=== PATIENT | male | born 1960 | race African-American/Black ===

== ENCOUNTER 2017-02-13 16:59 | Observation (INO) | payer OTHER ==
[~2017-02-13 16:59] MED LIST: ISOVUE-370 76%-LOCM 1 ML ONE
[2017-02-13 17:14] LABS: Hematocrit 37.9 % (42.0-52.0); Mean Platelet Volume 7.6 fL (7.4-10.4); Red Blood Cell (RBC) Count 4.41 mill/uL (4.70-6.10); White Blood Cell (WBC) Count 8.6 thou/uL (4.8-10.8)
[2017-02-13 17:26] LABS: PTT 28.3 SEC (22.9-36.1); Prothrombin Time 14.1 SEC (12.0-14.7)
[2017-02-13 17:28] LABS: ALT (SGPT) 14 U/L (8-55); AST (SGOT) 18 U/L (5-34); Alkaline Phosphatase 89 U/L (40-150); Anion Gap 17 mmol/L (10-20); BUN (Urea Nitrogen) 17 mg/dL (8.4-25.7); Bilirubin, Total 0.5 mg/dL (0.2-1.2); Calc. Creatinine Clearance 0 mL/min (70-130); Calcium 9.3 mg/dL (7.8-10.44); Carbon Dioxide 22 mmol/L (22-29); Chloride 102 mmol/L (98-107); Estimated GFR-MDRD 64; Globulin 3.4 g/dL (2.4-3.5); Protein, Total 7.6 g/dL (6.0-8.3)
[2017-02-13 17:33] LABS: Troponin I Less than 0.010 ng/mL (< 0.028)
[2017-02-13 17:34] LABS: Neutrophil 49 % (42-75)
[2017-02-13 17:38] LABS: CK (CPK) 162 U/L (30-200); Lipase 41 U/L (8-78)
[2017-02-13 17:45] LABS: Bilirubin Negative (Negative); Blood, Urine Negative (Negative); Glucose, Urine (Dipstick) Negative (Negative); Ketone, Urine Negative (Negative); Nitrite Negative (Negative); Protein, Urine (Dipstick) Negative (Neg-Trace); Urobilinogen 0.2 mg/dL (0.2-1.0)
--- NOTE | 2017-02-13 17:52 | RAD ---
RADIOGRAPH CHEST 1 VIEW: Supine HISTORY: 56-year-old male with acute chest pain. FINDINGS: There is no air space density or pulmonary edema. The lateral costophrenic angles are sharp. Supine positioning makes this study insensitive for pneumothorax detection. IMPRESSION: No acute pulmonary findings. og [] POS: [facility]
[2017-02-13 17:56] LABS: Amphetamine Not Detected (NotDetected); Methadone Not Detected (NotDetected); Methamphetamine Not Detected (NotDetected)
[2017-02-13 18:07] LABS: Hematocrit 41.3 % (42.0-52.0); Mean Platelet Volume 7.2 fL (7.4-10.4); Red Blood Cell (RBC) Count 4.74 mill/uL (4.70-6.10); White Blood Cell (WBC) Count 8.8 thou/uL (4.8-10.8)
[2017-02-13 18:27] LABS: Neutrophil 35 % (42-75)
--- NOTE | 2017-02-13 20:24 | CT ---
CTA THORAX WITH CONTRAST: 02/13/2017 (Computed Tomographic Angiography, chest (noncoronary) with contrast material, and image post proces sing) (PE protocol) HISTORY: A 56-year-old male status post syncope and chest pain. TECHNIQUE: IV injection of iodinated contrast: Isovue. Scan acquisition timing attempted to coincide with iodinated contrast bolus reaching maximal density in pulmonary arteries. 3D MIP reconstructions. FINDINGS: The esophagus is mildly distended with fluid and air. No evidence of pulmonary thromboembolism. No thoracic aortic aneurysm or dissection. Heavy calcification of the LAD. No pericardial effusion, pleural effusion, consolidation, pneumothorax, or pulmonary edema. No mediastinal or hilar lymphade nopathy. The stomach is fluid-filled and distended. IMPRESSION: 1. No evidence of pulmonary thromboembolism. No acute findings. 2. Distended stomach and possible ongoing gastroesophageal reflux. 3. Coronary atherosclerosis. og[] POS: [facility]
[2017-02-13] MEDS ORDERED: Ondansetron ODT 4 MG TAB SL PRN (21:33)
[2017-02-13] MEDS ORDERED: Ondansetron HCl/PF 4 MG/2 ML Vial IVP PRN (21:33)
[2017-02-13] MEDS ORDERED: Sodium Chloride 0.45% 1,000 ML IV SCH (21:45)
[2017-02-13 21:46] VITALS: BMI 23.0
[2017-02-13 21:56] LABS: Troponin I Less than 0.010 ng/mL (< 0.028)
[2017-02-14] MEDS ORDERED: Ondansetron HCl/PF 4 MG/2 ML Vial IVP PRN (00:24)
[2017-02-14] MEDS ORDERED: Acetaminophen 325 MG TAB PO PRN (00:24)
[2017-02-14] MEDS ORDERED: Potassium Chloride 20 MEQ TAB PO SCH (00:30)
[2017-02-14] MEDS: NS 0.9% w/ 40 MEQ KCL 1,000 ML IV SCH ×3 (00:46→20:26)
[2017-02-14 00:51] LABS: Troponin I 0.023 ng/mL (< 0.028)
--- NOTE | 2017-02-14 01:17 | HP ---
PRIMARY CARE PHYSICIAN: Taj Fam M.D. CHIEF COMPLAINT: Passing out. HISTORY OF PRESENT ILLNESS: Mr. Iverson is a pleasant 56-year-old gentleman, who was seen at [facility] on 02/14/2017. He reports that he had a syncopal episode 8 months ago. Yesterday, he mowed the lawn, sat down and drank a beer the early afternoon. He reports that he was sitting in a chair and passed out. The ep isode was witnessed. He reportedly had passed out for 10 minutes, with his eyes closed. No tonic-c lonic movements. No urinary or fecal incontinence. He does not recall what happened during the epi sode. There was no confusion following the episode. His family reported that the patient was diaph oretic. The patient specifically denies having any chest pain. He denies any nausea, vomiting, fevers, or c hills. REVIEW OF SYSTEMS: The following complete review of systems was negative, unless otherwise mentione d in the HPI or below: Constitutional: Weight loss or gain, sense of well-being, ability to conduc t usual activities, exercise tolerance. Skin/Breast: Rash, itching, changes in hair growth or loss , nail changes, breast lumps, tenderness, swelling, nipple discharge. Eyes: Vision, double vision, tearing, blind spots, pain. ENT/Mouth: Headaches (location, time of onset, duration, precipitatin g factors), vertigo, lightheadedness, injury. Vision, double vision, tearing, blind spots, pain, nos e bleeding, colds, obstruction, discharge, dental difficulties, gingival bleeding, dentures, neck st iffness, pain, tenderness, masses in thyroid or other areas. Cardiovascular: Precordial pain, subs ternal distress, palpitations, syncope, dyspnea on exertion, orthopnea, nocturnal paroxysmal dyspnea , edema, cyanosis, hypertension, heart murmurs, varicosities, phlebitis, claudication. Respiratory: Pain, shortness of breath, wheezing, stridor, cough, hemoptysis, fever or night sweats. Gastroint estinal: Poor appetite, dysphagia, indigestion, abdominal pain, heartburn, eructation, nausea, vomi ting, hematemesis, jaundice, constipation, or diarrhea, abnormal stools (julio c-colored, tarry, bloody , greasy, foul smelling), flatulence, hemorrhoids, recent changes in bowel habits. Genitourinary: Urgency, frequency, dysuria, nocturia, hematuria, polyuria, oliguria, unusual (or change in) color o f urine, stones, hesitancy, change in size of stream, dribbling, acute retention or incontinence, li aaron, potency. Musculoskeletal: Pain, swelling, redness or heat of muscles or joints, limitation, of motion, muscular weakness, atrophy, cramps. Neurologic/Psychiatric: Convulsions, paralyses, alfredo mor, incoordination, parasthesias, difficulties with memory of speech, sensory or motor disturbances , or muscular coordination (ataxia, tremor), emotional problems, anxiety, depression, previous psych iatric care, unusual perceptions, hallucinations. Allergy/Immunologic: Skin rash, anemia, bleeding tendency, polydipsia, polyuria, intolerance to heat or cold. PAST MEDICAL HISTORY: Hypertension. PAST SURGICAL HISTORY: None. FAMILY HISTORY: No family history of premature coronary artery disease. SOCIAL HISTORY: The patient denies tobacco use and recreational drug use. He drinks 5-6 beers a da y. ALLERGIES: No known drug allergies. CURRENT MEDICATIONS: Include aspirin 162 mg daily, hydrochlorothiazide 12.5 mg daily, lisinopril 20 mg daily. PHYSICAL EXAMINATION: GENERAL: Mr. Iverson is awake and alert, not in acute distress. VITAL SIGNS: Blood pressure is 127/83, pulse is 83. His breathing at rate of 14 and saturating 97% on room air. When he initially presented to the emergency room, he was hypotensive, with a blood p ressure of 97/61. He is afebrile. EYES: No scleral icterus. No conjunctival pallor. ENT: Dry mucosal membranes, no oropharyngeal erythema or exudates. NECK: Supple, nontender, normal range of movement. Trachea is midline. RESPIRATORY: Accessory muscles of breathing are not active. Chest wall movements are symmetric sachin aterally. LUNGS: Clear to auscultation without wheeze, rhonchi, or crepitations. CARDIOVASCULAR: S1 and S2 are heard, regular. Peripheral pulses palpable. No carotid bruits, no p ericardial rub. ABDOMEN: Soft, nontender, bowel sounds are heard, no hepatomegaly, no splenomegaly. NEUROLOGIC: Cranial nerves II through XII are intact. Deep tendon reflexes are 2+. MUSCULOSKELETAL: Power is 5/5 in all 4 extremities. Normal range of movement at all major extremit y joints. SKIN: No rashes or subcutaneous nodules. LYMPHATIC: No cervical lymphadenopathy. PSYCHIATRIC: Normal mood, normal affect, patient is oriented to person, place, and time. LABORATORY DATA: Mr. Iverson labs and investigations were reviewed. I reviewed EKG strips from [facility], which appeared to show ST elevations in the anterior leads. Followup electrocardiograms at this facility appear to show repolarization abnormalities. I also reviewed his chest x-ray, which does not show any pulmonary infiltrates. He also had a CT angiogram of the chest, which did not reveal a ny pulmonary thromboembolism. He had a distended stomach and possible ongoing gastroesophageal refl ux and coronary atherosclerosis. Laboratory investigation shows normal white count, hemoglobin 13, normal platelet count, INR 1.1, normal comprehensive metabolic profile except for decreased potassiu m of 3.0, normal troponin I x2, normal BNP, and normal lipase. Urinalysis is normal. Urine toxicol ogy screen is normal. ASSESSMENT AND PLAN: Mr. Iverson is a pleasant 56-year-old gentleman, who was seen at [facility] on 02/14/2017. His problem list includes: 1. Syncope: The etiology is unclear. Both neurologic and cardiac causes are possible. In additio n, it is possible his syncopal episode was secondary to dehydration or vasovagal causes. He will be admitted to the hospital and will receive intravenous fluids. We will check CT scan of the brain t o rule out any stroke, bleed, etc. We will monitor on telemetry. We will consult Cardiology for th eir opinion and help with further management. The flame brazing machine operator was already contacted by the emergen cy room physician about this patient. Catheterization was not done because it was felt that the EKG changes were due to repolarization abnormalities, 2D echocardiogram and carotid Dopplers have been ordered, we will follow. 2. Hypertension: Resume home medications, monitor vital signs, and titrate antihypertensives as ne eded. 3. Hypokalemia: Replaced. 4. Daily alcohol use: Start ASE protocol. The patient has been counseled regarding alcohol modera tion. Many thanks for allowing me to participate in your patient's care. Please feel free to contact me w ith any questions or concerns. LEVEL OF RISK: High. LEVEL OF COMPLEXITY: High.
[2017-02-14 05:37] LABS: #Eosinphils 0.1 thou/uL (0.0-0.7); #Lymphocytes 2.3 thou/uL (1.20-3.40); #Monocytes 0.8 thou/uL (0.11-0.59); #Neutrophils 3.7 thou/uL (1.40-6.50); %Basophils 0.3 % (0.0-1.0); %Eosinophils 1.5 % (0.0-10.0); %Lymphocytes 33.3 % (21.0-51.0); %Monocytes 11.1 % (0.0-10.0); Hematocrit 36.5 % (42.0-52.0); Mean Platelet Volume 7.2 fL (7.4-10.4); White Blood Cell (WBC) Count 6.9 thou/uL (4.8-10.8)
[2017-02-14 05:54] LABS: Anion Gap 7 mmol/L (10-20); BUN (Urea Nitrogen) 16 mg/dL (8.4-25.7); Calc. Creatinine Clearance 94 mL/min (70-130); Calcium 8.3 mg/dL (7.8-10.44); Carbon Dioxide 24 mmol/L (22-29); Chloride 108 mmol/L (98-107); Estimated GFR-MDRD Greater than 90
--- NOTE | 2017-02-14 08:31 | PDOC.PN ---
- Subjective Encounter Start Date: 02/14/17 Encounter Start Time: 08:30 Subjective: No lightheadedness,cp,sob,dizziness,f/c - Objective MAR Reviewed: Yes Vital Signs & Weight: Vital Signs (12 hours) Temp Pulse Resp BP BP BP BP 02/14/17 07:48 98.2 F 91 16 02/14/17 07:10 98.2 F 91 16 126/73 128/77 02/14/17 05:08 98.7 F 77 18 114/69 114/69 02/13/17 23:58 123/78 02/13/17 23:04 98.1 F 82 16 123/78 02/13/17 21:45 99.5 F 86 16 140/89 02/13/17 21:24 99.5 F 86 16 140/89 BP Pulse Ox 02/14/17 07:48 02/14/17 07:10 120/68 99 02/14/17 05:08 98 02/13/17 23:58 02/13/17 23:04 99 02/13/17 21:45 98 02/13/17 21:24 Weight Weight 151 lb 9.6 oz I&O: 02/13/17 02/14/17 02/15/17 06:59 06:59 06:59 Intake Total 1305 Output Total 1125 375 Balance 180 -375 Result Diagrams: 02/14/17 05:10 02/14/17 05:10 Phys Exam - Physical Examination Constitutional: NAD HEENT: PERRLA, moist MMs Neck: no nodes, no JVD Respiratory: no wheezing, no rales, clear to auscultation bilateral Cardiovascular: RRR, no significant murmur Gastrointestinal: soft, non-tender, positive bowel sounds Musculoskeletal: no edema, pulses present Neurological: non-focal, moves all 4 limbs Psychiatric: normal affect, A&O x 3 Skin: no rash, normal turgor Dx/Plan (1) Syncope Code(s): R55 - SYNCOPE AND COLLAPSE Status: Acute - Plan Syncope likely 2/2 Dehydration and Alcohol intake * CXR: no infiltrate * CT angio: no PE * CT brain: pending * ECHO: pending * Carotid dopplers: pending * Cardiology consulted * check labs in AM Alcohol dependence * MONIKA withdrawl protocol * monitor for seizures Dispo: continue inpt.
--- NOTE | 2017-02-14 09:28 | ULT ---
CAROTID ULTRASOUND: DATE: 02/14/17 COMPARISON: None. HISTORY: Syncope. TECHNIQUE: Multiplanar Ndiaye scale and color Doppler images were obtained in a carotid ultrasound. Spectral anal ysis of the Doppler waveforms were performed. FINDINGS: There is a mild amount of plaque surrounding both carotid bifurcations. The Doppler waveforms are no rmal bilaterally. Peak systolic velocity in the right ICA is 86 cm/second. Peak systolic velocity in the right CCA is 98 cm/second. The right ICA/CCA ratio is 0.9. Peak systolic velocity in the left ICA is 66 cm/second. Peak systolic velocity in the left CCA is 11 1 cm/second. The left ICA/CCA ratio is 0.6. Both vertebral arteries demonstrate antegrade flow without focal stenosis. IMPRESSION: No evidence of hemodynamically significant stenosis. POS: [facility]
[2017-02-14] MEDS: Hydrochlorothiazide 25 MG TAB PO SCH ×2 (10:13→19:31)
[2017-02-14] MEDS: Aspirin 325 MG TAB PO SCH ×2 (10:13→19:31)
[2017-02-14] MEDS: Enoxaparin Sodium 40 MG/0.4 ML SYRINGE SC SCH ×2 (10:13→19:33)
[2017-02-14] MEDS: Lisinopril 20 MG TAB PO SCH ×2 (10:14→19:30)
--- NOTE | 2017-02-14 10:56 | CON ---
DATE OF CONSULTATION: 02/13/2017 REASON FOR CONSULTATION: ST segment elevation and syncope. REFERRING PROVIDER: Leo Amaya D.O. in the emergency room. HISTORY OF PRESENT ILLNESS: Mr. Clive Iverson is a very pleasant 56-year-old ntleman who was seen and evaluated in an urgent fashion in the emergency room. Initially presented with syncope while in the porch. EMS was summoned. EKG suggested ST segment elevation in lead V2 a nd V3. No reciprocal changes present. I saw and evaluated Mr. Iverson in the emergency room. He was asymptomatic. He was resting comfo rtably. No signs or symptoms of acute myocardial infarction. He states he drank beer the previous evening. He then states he mowed his lawn and had a decreased p.o. intake. He then drank more alco hol shortly thereafter. He states he got up, got lightheaded and had a syncopal episode. No previo us history of underlying coronary disease. No previous history of tobacco use. His only cardiac ri sk factor is hypertension. PAST MEDICAL HISTORY: As above. FAMILY HISTORY: Negative for CAD. SOCIAL HISTORY: Negative tobacco use. He drinks a 6-pack of alcohol per day. ALLERGIES: None. MEDICATIONS: Aspirin, hydrochlorothiazide, lisinopril. PRIMARY CARE PROVIDER: Taj Fam M.D. REVIEW OF SYSTEMS: Ten point review of systems reviewed and as above. PHYSICAL EXAMINATION: GENERAL: Patient is a pleasant male who is in no acute distress. The patient appears his/her state d age. VITAL SIGNS: Blood pressure 120/68, pulse 80, respirations 20. NEUROLOGIC: The patient is alert and oriented times 3 with no focal neurologic deficits. HEENT: Sclerae without icterus. Mouth has moist mucous membranes with normal pallor. NECK: No JVD. Carotid upstroke brisk. No bruits bilaterally. LUNGS: Clear to auscultation with unlabored respirations. BACK: No scoliosis or kyphosis. CARDIAC: Regular rate and rhythm with normal S1 and S2. No S3 or S4 noted. No significant rubs, m urmurs, thrills, or gallops noted throughout the precordium. PMI is not displaced. There is no par asternal heave. ABDOMEN: Soft, nontender, nondistended. No peritoneal signs present. No hepatosplenomegaly. No a bnormal striae. EXTREMITIES: 2+ femoral and 2+ dorsalis pedis pulses. No cyanosis, clubbing, or edema. SKIN: No gross abnormalities. LABORATORY AND X-RAY FINDINGS: EKG shows ST segment elevation noted in leads V2, V3 suggesting repo larization changes. When compared to previous EKG in 2015, there are similar findings. CK and troponin negative. Hemoglobin 11.9, creatinine 0.85. IMPRESSION: 1. Syncope. 2. ST segment elevation suggesting repolarization changes. RECOMMENDATIONS: Mr. Iverson's symptoms are likely related to volume contraction. Recommend IV f luids. We would recommend echo with Doppler. I have canceled the proceeding for urgent coronary an giography given the findings. If his LVEF is stable and he does not tilt, I would be okay from my s [facility] to discharge home in a.m.
--- NOTE | 2017-02-14 11:27 | CT ---
CT OF THE BRAIN WITHOUT CONTRAST: Date: 02/14/17 COMPARISON: None. HISTORY: Lightheadedness yesterday and syncope. TECHNIQUE: Multiple contiguous axial images were obtained in a CT of the brain without contrast. FINDINGS: The brain is normal in morphology and attenuation without focal lesions or confluent areas of infarc tion. There is no evidence of hydrocephalus, intracranial hemorrhage, or extra-axial fluid collectio n. The calvarium and overlying soft tissues are unremarkable. The visualized paranasal sinuses and mast oid air cells are well aerated. IMPRESSION: No evidence of acute intracranial abnormality. POS: [facility]
--- NOTE | 2017-02-14 17:06 | PRG ---
DATE OF SERVICE: 02/14/2017 SUBJECTIVE: Mr. Iverson is doing well. No recurrent episodes of syncope or pre-syncope. In good spirits, without any symptoms. PHYSICAL EXAMINATION: VITAL SIGNS: Blood pressure 119/58, pulse 82, temperature 97.6. LUNGS: Systolic. HEART: Regular rate rhythm. ABDOMEN: Soft, nontender, nondistended. Extremities: No edema. IMPRESSION: Syncope. RECOMMENDATION: Symptoms likely due to dehydration. Patient has a good history for volume contract ion in addition to see in the ER with hypotension. He is kept on IV fluids, his blood pressure is s table. His LVEF is also normal. He would be okay from my standpoint to discharge home. No further recommendation.
[2017-02-15 05:10] LABS: #Eosinphils 0.1 thou/uL (0.0-0.7); #Lymphocytes 2.1 thou/uL (1.20-3.40); #Monocytes 0.5 thou/uL (0.11-0.59); #Neutrophils 1.6 thou/uL (1.40-6.50); %Basophils 0.4 % (0.0-1.0); %Eosinophils 2.9 % (0.0-10.0); %Lymphocytes 48.4 % (21.0-51.0); %Monocytes 10.7 % (0.0-10.0); Hematocrit 36.5 % (42.0-52.0); White Blood Cell (WBC) Count 4.3 thou/uL (4.8-10.8)
[2017-02-15 05:32] LABS: Anion Gap 8 mmol/L (10-20); BUN (Urea Nitrogen) 14 mg/dL (8.4-25.7); Calc. Creatinine Clearance 97 mL/min (70-130); Calcium 8.3 mg/dL (7.8-10.44); Carbon Dioxide 22 mmol/L (22-29); Chloride 111 mmol/L (98-107); Estimated GFR-MDRD Greater than 90
[2017-02-15 07:42] VITALS: BP 142/89; TEMP 98.2
[2017-02-15] MEDS: Hydrochlorothiazide 25 MG TAB PO SCH (09:43)
[2017-02-15] MEDS: Lisinopril 20 MG TAB PO SCH (09:43)
[2017-02-15] MEDS: Aspirin 325 MG TAB PO SCH (09:43)
--- NOTE | 2017-02-15 11:42 | DIS ---
DISCHARGE DISPOSITION: Home. FOLLOWUP: Follow up with Dr. Fam in 1 week. ALLERGIES: No known drug allergies. The patient was seen and examined on the day of discharge. Denies any new complaints. No chest malka n, shortness of breath or palpitations. He is ambulating in the hallway without any dizziness. Ort hostatic vitals were negative. DISCHARGE MEDICATIONS: Same as admission medications: 1. Aspirin 162 mg daily. 2. Hydrochlorothiazide 12.5 mg daily. 3. Lisinopril 20 mg daily. INPATIENT CONSULTANTS: Cardiology, Dr. Khoury. BRIEF HOSPITAL COURSE: The patient is a 56-year-old male with hypertension who presented to the [facility] with an episode of syncope while he was sitting on the chair. Please refer to the history and physical dated 02/13/2017 for further details. The patient was admitted to the hospital with a diagnosis of syncope. Serial cardiac enzymes were n ormal. The patient was evaluated by Cardiology, Dr. Khoury. His syncope was probably secondary to dehydration secondary to his diuretics along with diuresis from drinking alcohol. He normally dr inks more than 2 liters on a daily basis. He was also working outside in the sun per patient report . Cardiology has cleared the patient for discharge. He also had some electrolyte imbalance includi ng potassium of 3.0 that has been corrected. His orthostatic vitals have been negative. Telemetry monitoring showed sinus rhythm without significant arrhythmias. His echocardiogram showed left vent ricular ejection fraction of 55-60% with mild mitral regurgitation and mild tricuspid regurgitation. CT angiogram of the chest on admission was negative for pulmonary embolism. The patient has been cleared by Cardiology for discharge. FINAL DIAGNOSES: 1. Syncope secondary to hypovolemia. 2. Hypertension 3. Chronic alcoholism. 4. Hypokalemia, corrected. 5. Mild hyponatremia, corrected. 6. Chronic anemia. SIGNIFICANT LABS: 1. Urine drug screen was normal. 2. Cardiac enzymes were normal. 3. Potassium on admission was 3.0, at discharge was 4.8. 4. Hemoglobin 11.8, hematocrit 36.5. 5. Carotid Doppler was negative for hemodynamically significant stenosis. 6. CT scan of the brain was negative for acute findings. Plan of care was discussed with the patient and he stated understanding.
[2017-02-15] MEDS ORDERED: Enoxaparin Sodium 40 MG/0.4 ML SYRINGE SC SCH (21:00)
== END 2017-02-15 11:58 | disposition home or self-care (01) ==
LOC: EDBD 16:59 → ERS 16:59 → MERGE 20:50 → 2SW 20:50
PROVIDERS: ADMIT Internal Medicine; ATTEND Internal Medicine
DX: E86.1 Hypovolemia (principal); E87.6 Hypokalemia; I10 Essential (primary) hypertension; D64.9 Anemia, unspecified; F10.20 Alcohol dependence, uncomplicated; Z79.82 Long term (current) use of aspirin; Z79.899 Other long term (current) drug therapy
CPT/HCPCS: 36415; 70450; 71010; 71275; 80048; 80053; 80306; 81003; 82553; 83690; 83735; 83880; 84484; 85025; 85379; 85610; 85730; 93005; 93306; 93880; 96360; 96361; 96372; G0378; J1644; J1650

== ENCOUNTER 2021-01-23 11:41 | Emergency (ER) | payer OTHER ==
[2021-01-23 20:00] LABS: SARS-CoV-2 PCR by NAA DETECTED (NotDetected)
== END 2021-01-23 12:29 | disposition home or self-care (01) ==
LOC: ERS 11:41
DX: U07.1 COVID-19 (principal); I10 Essential (primary) hypertension; Z87.891 Personal history of nicotine dependence
CPT/HCPCS: 99283; U0003; U0005

== ENCOUNTER 2024-06-30 16:24 | Emergency (ER) | payer OTHER ==
[2024-06-30] MEDS ORDERED: Ondansetron PF 4 MG/2 ML Vial ONE (16:58)
[2024-06-30 17:31] LABS: INR-International Normal Ratio 1.1; Lipase 100 U/L (8-78); Prothrombin Time 14.2 sec (12.0-14.7)
[2024-06-30 17:32] LABS: PTT 34.7 sec (22.9-36.1)
[2024-06-30 17:33] LABS: ALT (SGPT) 31 U/L (Less than 45); AST (SGOT) 42 U/L (11-34); Albumin 3.8 g/dL (3.1-4.5); Alkaline Phosphatase 67 U/L (40-110); Anion Gap 15 mmol/L (10-20); BUN (Urea Nitrogen) 36 mg/dL (8.4-25.7); Bilirubin, Total 0.4 mg/dL (0.3-1.2); Calc. Creatinine Clearance 0 mL/min (70-130); Carbon Dioxide 22 mmol/L (23-31); Chloride 100 mmol/L (98-107); Estimated GFR 42; Globulin 3.7 g/dL (2.4-3.5); Glucose 96 mg/dL (80-115); Potassium 3.3 mmol/L (3.5-5.1); Protein, Total 7.5 g/dL (5.8-8.1); Sodium 134 mmol/L (136-145)
[2024-06-30 17:34] LABS: Acetaminophen Less than 10 mcg/mL (Less than 10); Alcohol Less than 10.0 mg/dL (Less than 10); Salicylate Less than 8.0 mg/dL (Less than 8.0)
[2024-06-30 17:36] LABS: Troponin I Less than 0.010 ng/mL (< 0.028)
[2024-06-30 17:51] LABS: Band 6 % (5-11); Burr Cells SLIGHT = 2-5 cells HPF (0-1); Lymphocytes 14 % (21-51); Macrocytosis SLIGHT = 6-15 cells HPF (0-5); Monocytes 30 % (0-10); Neutrophil 48 % (42-75); Ovalocytes SLIGHT = 2-5 cells HPF (0-1); Platelet Adequacy Comment Platelets Normal; Reactive Lymphocytes 2 % (0-10); Smudge Cells 26.7 %
[2024-06-30] MEDS ORDERED: Potassium Chloride 20 MEQ TAB ONE (17:51)
[2024-06-30 18:01] LABS: #Basophils Less than 0.03 10x3/uL (0.0-0.2); #Eosinophils Less than 0.03 10x3/uL (0.0-0.7); %Basophils 0.1 % (0.0-1.0); %Eosinophils 0.1 % (0.0-10.0); %Lymphocytes 34.7 % (21.0-51.0); %Monocytes 20.4 % (0.0-10.0); %Neutrophils 44.5 % (42.0-75.0); Hematocrit 38.3 % (42.0-52.0); Hemoglobin 13.1 g/dL (14.0-18.0); Mean Corpuscular HGB CONC 34.2 g/dL (32.0-36.0); Mean Corpuscular Hemoglobin 27.5 pg (27.0-31.0); Mean Corpuscular Volume 80.3 fL (78.0-98.0); Mean Platelet Volume 10.1 fL (7.4-10.4); Platelet Count 239 10x3/uL (130-400); RBC Distribution Width 12.4 % (11.5-14.5); Red Blood Cell (RBC) Count 4.77 mill/uL (4.70-6.10)
== END 2024-06-30 22:34 | disposition home or self-care (01) ==
LOC: ERS 16:24
DX: R55 Syncope and collapse (principal); E86.0 Dehydration; I10 Essential (primary) hypertension; Z87.891 Personal history of nicotine dependence
CPT/HCPCS: 36416; 71045; 80053; 80307; 83605; 83690; 84484; 85025; 85610; 85730; 87040; 87428; 93005; 94760; 96360; 96361; J2405